=== PATIENT | female | born 1965 | race African-American/Black ===

== ENCOUNTER 2020-08-05 10:18 | Emergency (ER) | payer MEDICARE, MEDICAID ==
[~2020-08-05] VITALS: Ht 160 cm; Wt 57.0 kg
[~2020-08-05 10:18] MED LIST: AMLO5TAB88; CARI350T28 PO; HYDR-523 PO; LOSA25TA26
[2020-08-05] MEDS ORDERED: LIDOCAINE HCL/PF 1% 10 MG/ML 5ML VIAL IJ ONE (11:00)
[2020-08-05] MEDS ORDERED: TETANUS, DIPHTHERIA, PERTUSSIS VAC/PF 0.5ML (>7YR OLD) IM ONE (11:00)
[2020-08-05] MEDS ORDERED: BACITRACIN ZINC OINT UDPKT TOP ONE (11:00)
[2020-08-05] MEDS ORDERED: SODIUM CHLORIDE 0.9% 1,000 ML IV ONE ×2 (11:00)
[2020-08-05 11:39] LABS: BASOPHILS % 0.6 % (0.0-2.0); EOSINOPHILS % 1.3 % (0.0-5.0); HEMATOCRIT. 35.8 % (36.0-48.0); LYMPHOCYTES % 38.6 % (20.0-50.0); MEAN CORPUSCULAR HEMOGLOBIN 31.8 pg (28.0-32.0); MEAN CORPUSCULAR VOLUME 94.5 fL (81.0-99.0); MEAN PLATELET VOLUME 7.2 fl (7.4-10.4); NEUTROPHILS % 51.5 % (40.0-76.0); PLATELET 200 x1000/uL (130-400); RED BLOOD CELL COUNT 3.78 mill/uL (4.2-5.4); RED CELL DISTRIBUTION WIDTH 14.3 % (11.6-14.6)
[2020-08-05 11:47] LABS: CHLORIDE 112 mEq/L (98-107)
[2020-08-05 11:51] LABS: ETHANOL BLOOD 103 mg/dL
[2020-08-05 13:33] LABS: CLARITY URINE CLEAR (CLEAR); COLOR URINE YELLOW (YELLOW); KETONES URINE NEGATIVE (NEGATIVE); LEUKOCYTE ESTERASE URINE NEGATIVE (NEGATIVE); NITRITE URINE NEGATIVE (NEGATIVE); OCCULT BLOOD URINE NEGATIVE (NEGATIVE); PROTEIN URINE NEGATIVE (NEGATIVE); SPECIFIC GRAVITY URINE 1.011 (1.005-1.030); UROBILINOGEN URINE 0.2 E.U./dL (0.2-1.0)
[2020-08-05 13:42] LABS: *AMPHETAMINES SCREEN URINE NEGATIVE (NEGATIVE); *BENZODIAZEPINES SCREEN URINE PRESUMTIVE POSITIVE (NEGATIVE); *COCAINE SCREEN URINE NEGATIVE (NEGATIVE); METHADONE URINE SCREEN NEGATIVE (NEGATIVE); OPIATES URINE SCREEN NEGATIVE (NEGATIVE)
[2020-08-05 13:43] LABS: CANNABINOID URINE SCREEN NEGATIVE (NEGATIVE); PHENCYCLIDINE URINE SCREEN NEGATIVE (NEGATIVE)
[2020-08-05 13:48] LABS: *BARBITURATES SCREEN URINE NEGATIVE (NEGATIVE)
[2020-08-05 14:30] VITALS: BP 172/89
[2020-08-05] MEDS ORDERED: IBUP-2028 MT (14:30)
== END 2020-08-05 15:52 | disposition home or self-care (01) ==
LOC: ER 10:30
DX: S91.114A Laceration without foreign body of right lesser toe(s) without damage to nail, initial encounter (principal); F10.129 Alcohol abuse with intoxication, unspecified; K62.3 Rectal prolapse; I10 Essential (primary) hypertension; F19.10 Other psychoactive substance abuse, uncomplicated; E86.0 Dehydration; Z86.73 Personal history of transient ischemic attack (TIA), and cerebral infarction without residual deficits; Z79.899 Other long term (current) drug therapy; W18.39XA Other fall on same level, initial encounter; Y93.89 Activity, other specified; Y92.89 Other specified places as the place of occurrence of the external cause; Y99.8 Other external cause status; Y90.9 Presence of alcohol in blood, level not specified
CPT/HCPCS: 12001; 90471; 90715; 96360; 99285; J3490; J7030; 36415; 71045; 73590; 73610; 73630; 80053; 80305; 80307; 80320; 80329; 81003; 85025; 93005; G0480

== ENCOUNTER 2021-06-15 00:13 | Emergency (ER) | payer MEDICARE, MEDICAID ==
[~2021-06-15] VITALS: Ht 170.2 cm; Wt 82.0 kg
[~2021-06-15 00:13] MED LIST changes: +IBUP-2028 MT
[2021-06-15] MEDS ORDERED: KETOROLAC 60MG/2ML VIAL IM ONE (00:45)
[2021-06-15] MEDS ORDERED: ONDANSETRON 4MG ODT PO ONE (00:45)
[2021-06-15 00:57] VITALS: BP 176/92
== END 2021-06-15 01:20 | disposition home or self-care (01) ==
LOC: ER 00:27
DX: U07.1 COVID-19 (principal)
CPT/HCPCS: 87426; 96372; 99283; J1885; Q0162